=== PATIENT | male | born 1980 | race Caucasian/White ===

== ENCOUNTER 2017-06-13 05:07 | Emergency (ER) | payer MEDICARE ==
[2017-06-13] MEDS ORDERED: Ativan 2 MG/1 ML VIAL IM ONE (05:34)
--- NOTE | 2017-06-13 05:39 | ERPHSYRPT ---
- History of Present Illness Time Seen by Provider: 06/13/17 05:34 Source: patient Exam Limitations: no limitations Patient Subjective Stated Complaint: pt states he has been out of his ativan for several days and states he thinks hes going through withdrawal. states his skin has been crawling, hes unable to sit still, and cant sleep. Triage Nursing Assessment: pt alert and oriented, answers qeustions approp. pt restless in bed. skin pink warm and dry. respirations nonlabored with lungs cta. pt ambulatory with steady gait noted. mult open areas on face and arms. Physician History: 37 y/o male with history of anxiety comes to the ER after running out of ativan for the past 2 days. Pt's PCP cut his ativan 0.5mg TID to once daily. The patient was able to cut it to twice daily but ran out. Pt will be moving to [place] on June 16 and will establish care there. Pt admits to having the sensation that his skin is crawling and has some jitteriness. Pt says he has had benzo withdrawal in the past and does not want that to happen again. Timing/Duration: day(s) Associated Symptoms: anxiety Previous symptoms: no prior history Allergies/Adverse Reactions: ammonium alum Allergy (Verified 06/10/17 18:03) amoxicillin Allergy (Verified 06/10/17 18:03) asenapine [From Saphris] Allergy (Verified 06/10/17 18:03) bee venom protein (honey bee) Allergy (Verified 06/10/17 18:03) cefaclor [From Ceclor] Allergy (Verified 06/10/17 18:03) cephalexin [From Keflex] Allergy (Verified 06/10/17 18:03) ciprofloxacin [From Cipro] Allergy (Verified 06/10/17 18:03) clarithromycin [From Biaxin] Allergy (Verified 06/10/17 18:03) diclofenac [From Cataflam] Allergy (Verified 06/10/17 18:03) erythromycin base Allergy (Verified 06/10/17 18:03) fluticasone [From Flonase] Allergy (Verified 06/10/17 18:03) hydroxychloroquine Allergy (Verified 06/10/17 18:03) ibuprofen Allergy (Verified 06/10/17 18:03) Iodinated Contrast- Oral and IV Dye Allergy (Verified 06/10/17 18:03) ketorolac [From Toradol] Allergy (Verified 06/10/17 18:03) lurasidone [From Latuda] Allergy (Verified 06/10/17 18:03) nefazodone [From Serzone] Allergy (Verified 06/10/17 18:03) NSAIDS (Non-Steroidal Anti-Inflamma Allergy (Verified 06/10/17 18:03) risperidone [From Risperdal] Allergy (Verified 06/10/17 18:03) sumatriptan Allergy (Verified 06/10/17 18:03) tramadol Allergy (Verified 06/10/17 18:03) Home Medications: Atorvastatin Calcium [Lipitor 20MG Tablet] 20 mg PO HS 06/10/17 [History] Azelastine Nasal [Astelin Nasal] 30 ml NS BID 06/10/17 [History] Budesonide/Formoterol Fumarate [Symbicort 160-4.5 Mcg Inhaler] 6 gm IH BID 06/10 [History] Famotidine 20 mg [Pepcid 20 MG] 20 mg PO BID 06/10/17 [History] Hydrocodone Bit/Acetaminophen [[place] 7.5-325 Tablet] 1 each PO QIDPRN PRN [History] Ipratropium/Albuterol Sulfate [Combivent Inhaler] 20 mcg IH QID 06/10/17 [ History] Linaclotide [Linzess] 290 mcg PO DAILY 06/10/17 [History] Lorazepam 0.5 mg [Ativan 0.5 MG] 0.5 mg PO TID 06/10/17 [History] Montelukast Sodium [Singulair] 10 mg PO HS 06/10/17 [History] Non-Formulary Drug [Non-Formulary Item] 40 mg PO UD 06/10/17 [History] Ondansetron [Zofran Odt] 4 mg PO UD 06/10/17 [History] Oxcarbazepine 300 mg [Trileptal 300 MG Tablet] 300 mg PO DAILY 06/10/17 [ History] Oxcarbazepine [Trileptal] 600 mg PO HS 06/10/17 [History] PANTOPRAZOLE 40 mg Tablet [Protonix 40MG Tablet] 40 mg PO DAILY 06/10/17 [ History] Promethazine HCl 25 mg [Phenergan 25 mg] 25 mg PO UD 06/10/17 [History] Promethazine HCl [Phenadoz] 25 mg RC TIDPRN 06/10/17 [History] Vortioxetine Hydrobromide [Brintellix] 20 mg PO DAILY 06/10/17 [History] Zonisamide [Zonegran] 200 mg PO BID 06/10/17 [History] Hx Tetanus, Diphtheria Vaccination/Date Given: Yes Hx Influenza Vaccination/Date Given: Yes Hx Pneumococcal Vaccination/Date Given: Yes Immunizations Up to Date: Yes - Past Medical History Pertinent Past Medical History: Yes Neurological History: No Pertinent History ENT History: No Pertinent History Cardiac History: High Cholesterol Respiratory History: Asthma Endocrine Medical History: Hypoglycemia Musculoskeletal History: Arthritis GI Medical History: Other History: No Pertinent History Psycho-Social History: Anxiety, Bipolar, Depression Other Medical History: adhd, insomnia,ibs, gastroperesis,partial stomach removal , hiatal hernia, kidney stone - Past Surgical History Past Surgical History: Yes Gastrointestinal: Appendectomy, Cholecystectomy Other Surgical History: partial stomach removal, left ear surgery, carpal tunnel bilat, cyst removed from shoulders - Social History Smoking Status: Current every day smoker How long have you smoked: 18 Exposure to second hand smoke: No Drug Use: none Patient Lives Alone: No - Review of Systems Constitutional: No Fever, No Chills Eyes: No Symptoms Ears, Nose, & Throat: No Symptoms Respiratory: No Cough, No Dyspnea Cardiac: No Chest Pain, No Edema, No Syncope Abdominal/Gastrointestinal: No Abdominal Pain, No Nausea, No Vomiting, No Diarrhea Genitourinary Symptoms: No Dysuria Musculoskeletal: No Back Pain, No Neck Pain Skin: No Rash Neurological: No Dizziness, No Focal Weakness, No Sensory Changes Psychological: No Symptoms, Mood Changes, No Alcohol Abuse, No Drug Abuse Endocrine: No Symptoms All Other Systems: Reviewed and Negative - Nursing Vital Signs Nursing Vital Signs: Initial Vital Signs Temperature 98.1 F 06/13/17 05:20 Pulse Rate 73 06/13/17 05:20 Respiratory Rate 16 06/13/17 05:20 Blood Pressure 103/63 06/13/17 05:20 O2 Sat by Pulse Oximetry 100 06/13/17 05:20 Pain Scale Pain Intensity 0 - Physical Exam General Appearance: no apparent distress Eyes, Ears, Nose, Throat Exam: normal ENT inspection, moist mucous membranes Neck Exam: normal inspection, non-tender, supple Respiratory Exam: normal breath sounds, lungs clear, No respiratory distress Cardiovascular Exam: regular rate/rhythm, No edema Gastrointestinal/Abdominal Exam: soft, normal bowel sounds, No tenderness, No distention Extremities Exam: normal inspection, normal range of motion, No evidence of injury, No edema Current Suicidality: denies suicide plan Neurological Exam: alert, manager of data II-XII nml as tested, oriented x 3 Behavior/Eye Contact/Speech: alert & cooperative, cooperative, good eye contact Thoughts/Hallucinations: normal thought pattern, no apparent hallucination Skin Exam: normal color, warm, dry, No rash SpO2 Interpretation: normal SpO2: 100 Oxygen Delivery: Room Air - Course Nursing assessment & vital signs reviewed: Yes - Progress Progress: unchanged Progress Note: 06/13/17 05:38 Pt will be given a script for ativan 0.5 mg twice daily prn anxiety, dispense: 10. Pt has agreed to F/U with psych in [place] on June 16. - Departure Time of Disposition: 05:39 Departure Disposition: Home Clinical Impression: Anxiety Condition: Stable Critical Care Time: No Referrals: Provider,Unknown [Primary Care Provider] - Instructions: Anxiety -- Adult Additional Instructions: Follow up with a mental health provider in [place] on June 16 for further recommendations. Prescriptions: Lorazepam 0.5 mg [Ativan 0.5 MG] 0.5 mg PO BID PRN #10 tablet PRN Reason: Anxiety
[2017-06-13] MEDS ORDERED: Ativan 2 MG/1 ML VIAL ONE (05:40)
[2017-06-13 05:51] VITALS: BP 106/67; PULSE 66; O2SAT 97
== END 2017-06-13 05:53 | disposition home or self-care (01) ==
LOC: ED 05:07
DX: F41.9 Anxiety disorder, unspecified (principal)
CPT/HCPCS: 96372; 99284; J2060